=== PATIENT | female | born 1990 | race Caucasian/White ===

== ENCOUNTER 2018-08-24 15:04 | Emergency (ER) | payer SELFPAY ==
[2018-08-24] MEDS ORDERED: Tetracaine 0.5% OPTH.SOL 4 ML* 1 DROP BTL LEFT EYE ONE (15:07)
[2018-08-24] MEDS ORDERED: Fluorescein Sodium TOPICAL* 1 MG TEST STRIP OPHTHALMIC ONE (15:08)
[2018-08-24 15:11] VITALS: BP 149/61
[2018-08-24] MEDS ORDERED: Eye Irrigation Solution 30 ML BOTTLE ONE (15:16)
[2018-08-24] MEDS ORDERED: HYDROcodone/ACETAMIN 5-325 MG* 1 TAB PO ONE (15:26)
[2018-08-24] MEDS ORDERED: Eye Irrigation Solution 30 ML BOTTLE LEFT EYE ONE (15:26)
[2018-08-24] MEDS ORDERED: Ibuprofen TAB* 600 MG PO ONE (15:26)
[2018-08-24] MEDS ORDERED: Erythromycin OPTH OINT* APPLIC OINT LEFT EYE ONE (15:26)
--- NOTE | 2018-08-24 15:39 | UC ---
Eye Complaint HPI - HPI Summary HPI Summary: 28 year old female presents with left eye pain after being accidentally struck in the eye with a tree limb at approximately 1200 today. Associated with photophobia, FB sensation, and tearing. Denies visual loss, blurred vision, or double vision. She does not wear contacts. States she flushed eye immediately after injury. - History of Current Complaint Chief Complaint: UCEye Stated Complaint: EYE COMPLAINT Time Seen by Provider: 08/24/18 15:06 Hx Obtained From: Patient Hx Last Menstrual Period: IUD Onset/Duration: Sudden Onset, Lasting Hours Severity Initially: Severe Severity Currently: Severe Pain Intensity: 7 Location of Injury: Conjunctiva Character: Foreign Body Sensation Aggravating Factor(s): Light, Blinking Alleviating Factor(s): Nothing Associated Signs And Symptoms: Positive: Photophobia, Drainage (Clear) Eyes: 1 - Left eye 2 - Approximately 5 mm corneal abrasion - Allergies/Home Medications Allergies/Adverse Reactions: Allergies Allergy/AdvReac Type Severity Reaction Status Date / Time No Known Allergies Allergy Verified 08/24/18 15:07 Home Medications: Home Medications Naproxen [Naprosyn 500 mg tab] 500 mg PO Q12HR PRN 08/24/18 [History Confirmed 08/24/18] PMH/Surg Hx/FS Hx/Imm Hx Previously Healthy: Yes - Denies significant PMH - Surgical History Surgical History: None - Family History Family History: Noncontributory - Social History Occupation: Employed Full-time Lives: With Family Alcohol Use: Weekly Substance Use Type: None Smoking Status (MU): Never Smoked Tobacco - Immunization History Most Recent Tetanus Shot: 2013 Review of Systems Constitutional: Negative Eyes: Eye Redness, Photophobia, Other - FB sensation ENT: Negative Is Patient Immunocompromised?: No All Other Systems Reviewed And Are Negative: Yes Physical Exam Triage Information Reviewed: Yes Appearance: Well-Appearing, No Pain Distress, Well-Nourished Vital Signs: Initial Vital Signs Temp 98.7 F 08/24/18 15:06 Pulse 97 08/24/18 15:06 Resp 18 08/24/18 15:06 BP 149/61 08/24/18 15:06 Pulse Ox 100 08/24/18 15:06 Vital Signs Reviewed: Yes Eyes: Positive: Conjunctiva Inflamed - left, Other: - See eye procedure for exam findings Respiratory: Positive: Lungs clear, Normal breath sounds, No respiratory distress Cardiovascular: Positive: No Murmur, Pulses Normal Neurological: Positive: Alert Skin Exam: Normal Procedures - Eye Procedure Left Alcaine Drops Administered: Yes - Flurosceine instilled. 5 mm corneal abrasion over iris at 6:00 positon. Eye FB Removal: other - Upper lid inverted. No FB noted. Antibiotic Ointment/Drps Admin: left eye Eye Complaint Course/Dx - Course Course Of Treatment: 28 year old female with left eye pain after being struck in eye by tree branch. Exam revealed 5 mm corneal abrasion without evidence of FB or penetrating injury. She was given ibuprofen and [place] x1 for pain management as well as started on erythromycin ophthalmic ointment. Arranged for patient to have evaluation by opthalmology upon discharge. She is to go directly to the office from the clinic via private vehicle. Mother is driving. - Differential Dx/Diagnosis Provider Diagnoses: Corneal abrasion left eye Discharge - Sign-Out/Discharge Documenting (check all that apply): Patient Departure All imaging exams completed and their final reports reviewed: No Studies - Discharge Plan Condition: Stable Disposition: HOME Patient Education Materials: Corneal Abrasion (ED) Referrals: Ayo Underwood [Primary Care Provider] - Sonia Starks MD [Medical Doctor] - (Go directly to office from clinic. Appointment scheduled for 4:30.) Additional Instructions: Go directly to [facility] after discharge. You have an appointment scheduled with Dr. Starks at 4:30 pm. - Billing Disposition and Condition Condition: STABLE Disposition: Home - Attestation Statements Provider Attestation: Per institutional requirements, I have reviewed the chart, however, I was not consulted specifically or made aware of this patient by the midlevel provider. I did not personally evaluate, interact with , or disposition this patient.
== END 2018-08-24 15:55 | disposition home or self-care (01) ==
LOC: UCEAST 15:04
DX: S05.02XA Injury of conjunctiva and corneal abrasion without foreign body, left eye, initial encounter (principal); W22.8XXA Striking against or struck by other objects, initial encounter; Y92.9 Unspecified place or not applicable
CPT/HCPCS: 99202; A9270-GY; G0463